=== PATIENT | female | born 1965 | race African-American/Black ===

== ENCOUNTER 2023-03-28 23:25 | Emergency (ER) | payer MEDICAID ==
[~2023-03-28] VITALS: Ht 157.5 cm; Wt 63.6 kg
[2023-03-29 00:05] LABS: BASOPHILS % (AUTO) 0.3 % (0-1); EOSINOPHILS # (AUTO) 0.7 X10'3 (0-0.9); EOSINOPHILS % (AUTO) 6.4 % (0-6); HEMATOCRIT 36.9 % (35.0-45.0); HEMOGLOBIN 12.3 g/dl (12.0-16.0); LYMPHOCYTES # (AUTO) 3.7 X10'3 (1.1-4.8); LYMPHOCYTES % (AUTO) 34.3 % (21-51); MEAN CORPUSCULAR HEMOGLOBIN 30.2 PG (27.0-31.0); MEAN CORPUSCULAR HGB CONC 33.2 g/dL (33.0-36.5); MEAN CORPUSCULAR VOLUME 90.8 FL (78-98); MEAN PLATELET VOLUME 8.5 FL (7.4-10.4); MONOCYTES # (AUTO) 0.7 X10'3 (0-0.9); MONOCYTES % (AUTO) 6.4 % (2-12); NEUTROPHILS # (AUTO) 5.7 X10'3 (1.8-7.7); NEUTROPHILS % (AUTO) 52.6 % (42-75); PLATELET COUNT 212 X10'3 (140-440); RED BLOOD COUNT 4.06 X10'6 (4.20-5.60); RED CELL DISTRIBUTION WIDTH 13.8 % (11.5-14.5); WHITE BLOOD COUNT 10.8 X10'3 (4.5-11.0)
[2023-03-29 00:22] LABS: ALANINE AMINOTRANSFERASE 23 U/L (12-78); ALBUMIN 3.2 G/DL (3.4-5.0); ALBUMIN/GLOBULIN RATIO 0.8 (1.1-1.5); ALKALINE PHOSPHATASE 99 IU/L (46-116); ANION GAP 6 (8-16); ASPARTATE AMINO TRANSFERASE 19 U/L (10-37); BILIRUBIN,TOTAL 0.3 MG/DL (0.1-1.0); BLOOD UREA NITROGEN 19 MG/DL (7-18); BUN/CREATININE RATIO 20.4 (10.0-20.0); CALCIUM 8.8 MG/DL (8.5-10.1); CHLORIDE 107 MMOL/L (99-107); CREATININE 0.93 MG/DL (0.40-0.90); GLUCOSE 219 MG/DL (70-104); POTASSIUM 4.1 MMOL/L (3.5-5.1); SODIUM 139 MMOL/L (135-145); TOTAL CARBON DIOXIDE 26.3 MMOL/L (24-32); TOTAL PROTEIN 7.1 G/DL (6.4-8.2); eGFR 75 ML/MIN
[2023-03-29 04:54] VITALS: BP 145/89
== END 2023-03-29 05:09 | disposition home or self-care (01) ==
LOC: ER 23:28
DX: R07.89 Other chest pain (principal); I69.954 Hemiplegia and hemiparesis following unspecified cerebrovascular disease affecting left non-dominant side; Z95.0 Presence of cardiac pacemaker; Z88.0 Allergy status to penicillin
CPT/HCPCS: 36415; 71045; 80053; 83880; 84484; 85025; 93005; 99285

== ENCOUNTER 2023-12-30 13:42 | Emergency (ER) | payer MEDICAID ==
[~2023-12-30] VITALS: Ht 157.5 cm; Wt 71.4 kg
[2023-12-30 13:44] VITALS: TEMP 97.9
[2023-12-30] MEDS: metoprolol tartrate 50mg tablet PO ONE ×2 (18:02→18:26)
[2023-12-30] MEDS: hydrALAZINE 25 MG tablet PO ONE (18:02)
[2023-12-30 18:28] LABS: BASOPHILS % (AUTO) 0.2 % (0-1); EOSINOPHILS # (AUTO) 0.3 X10'3 (0-0.9); EOSINOPHILS % (AUTO) 3.5 % (0-6); HEMATOCRIT 37.8 % (35.0-45.0); HEMOGLOBIN 12.4 g/dl (12.0-16.0); LYMPHOCYTES # (AUTO) 3.8 X10'3 (1.1-4.8); LYMPHOCYTES % (AUTO) 38.5 % (21-51); MEAN CORPUSCULAR HEMOGLOBIN 29.1 PG (27.0-31.0); MEAN CORPUSCULAR HGB CONC 32.9 g/dL (33.0-36.5); MEAN CORPUSCULAR VOLUME 88.4 FL (78-98); MEAN PLATELET VOLUME 8.9 FL (7.4-10.4); MONOCYTES # (AUTO) 0.7 X10'3 (0-0.9); MONOCYTES % (AUTO) 7.3 % (2-12); NEUTROPHILS % (AUTO) 50.5 % (42-75); PLATELET COUNT 246 X10'3 (140-440); RED BLOOD COUNT 4.27 X10'6 (4.20-5.60); RED CELL DISTRIBUTION WIDTH 14.6 % (11.5-14.5); WHITE BLOOD COUNT 9.9 X10'3 (4.5-11.0)
[2023-12-30 18:51] LABS: ALBUMIN 3.2 G/DL (3.4-5.0); ANION GAP 7 (8-16); BLOOD UREA NITROGEN 17 MG/DL (7-18); BUN/CREATININE RATIO 22.1 (10.0-20.0); CALCIUM 8.8 MG/DL (8.5-10.1); CHLORIDE 106 MMOL/L (99-107); CREATININE 0.77 MG/DL (0.40-0.90); GLUCOSE 119 MG/DL (70-104); PRO BRAIN NATRIURETIC PEPTIDE 281 PG/ML (0-125); SODIUM 142 MMOL/L (135-145); TOTAL CARBON DIOXIDE 28.6 MMOL/L (24-32); eCRCL 62 ML/MIN; eGFR > 90 ML/MIN
[2023-12-30] MEDS ORDERED: AMLO5TAB16 PO (19:10)
[2023-12-30 22:16] VITALS: BP 141/91; PULSE 83; RESP 20; O2SAT 96
== END 2023-12-31 00:12 | disposition home or self-care (01) ==
LOC: ER 13:42
DX: I10 Essential (primary) hypertension (principal); Z88.0 Allergy status to penicillin; Z79.899 Other long term (current) drug therapy
CPT/HCPCS: 36415; 80048; 83880; 84484; 85025; 93005; 99285

== ENCOUNTER 2024-06-11 20:59 | Inpatient (IN) | payer MEDICAID ==
[~2024-06-11] VITALS: Ht 157.5 cm; Wt 71.3 kg
[~2024-06-11 20:59] MED LIST: AMLO5TAB16 PO
[2024-06-11] MEDS: normal saline 1000ML IV soln IVB ONE (22:38)
[2024-06-11 22:49] LABS: BASOPHILS % (AUTO) 0.6 % (0-1); EOSINOPHILS # (AUTO) 0.1 X10'3 (0-0.9); EOSINOPHILS % (AUTO) 1.5 % (0-6); HEMATOCRIT 38.2 % (35.0-45.0); HEMOGLOBIN 12.4 g/dl (12.0-16.0); LYMPHOCYTES % (AUTO) 15.2 % (21-51); MEAN CORPUSCULAR HEMOGLOBIN 28.1 PG (27.0-31.0); MEAN CORPUSCULAR HGB CONC 32.5 g/dL (33.0-36.5); MEAN CORPUSCULAR VOLUME 86.2 FL (78-98); MEAN PLATELET VOLUME 8.8 FL (7.4-10.4); MONOCYTES % (AUTO) 15.4 % (2-12); NEUTROPHILS # (AUTO) 4.2 X10'3 (1.8-7.7); NEUTROPHILS % (AUTO) 67.3 % (42-75); PLATELET COUNT 196 X10'3 (140-440); RED BLOOD COUNT 4.43 X10'6 (4.20-5.60); RED CELL DISTRIBUTION WIDTH 15.1 % (11.5-14.5); WHITE BLOOD COUNT 6.3 X10'3 (4.5-11.0)
[2024-06-11 22:53] LABS: ALBUMIN 3.3 G/DL (3.4-5.0); ANION GAP 9 (8-16); BLOOD UREA NITROGEN 9 MG/DL (7-18); BUN/CREATININE RATIO 10.8 (10.0-20.0); CALCIUM 8.7 MG/DL (8.5-10.1); CHLORIDE 104 MMOL/L (99-107); CREATININE 0.83 MG/DL (0.40-0.90); GLUCOSE 123 MG/DL (70-104); POTASSIUM 3.7 MMOL/L (3.5-5.1); SODIUM 138 MMOL/L (135-145); TOTAL CARBON DIOXIDE 25.5 MMOL/L (24-32); eCRCL 58 ML/MIN; eGFR 85 ML/MIN
[2024-06-11 23:19] LABS: TOTAL CELLS COUNTED 100
[2024-06-11 23:20] LABS: PLATELET ESTIMATE NORMAL
[2024-06-12 01:15] LABS: BILIRUBIN,URINE NEGATIVE (Neg); CLARITY,URINE CLEAR (Clear); COLOR,URINE YELLOW (Yellow); GLUCOSE, URINE NEGATIVE (Neg); KETONES,URINE TRACE mg/dl (Neg); LEUKOCYTE ESTERASE ,URINE NEGATIVE (Neg); NITRITES, URINE NEGATIVE (Neg); OCCULT BLOOD,URINE SMALL (Neg); PH,URINE 6.5 (4.8-8.0); PROTEIN,URINE NEGATIVE (Neg); UROBILINOGEN,URINE 0.2 E.U/dL (0.2-1.0)
[2024-06-12] MEDS ORDERED: amLODIPine 5mg tablet PO ONE (01:20)
[2024-06-12 01:30] LABS: UA COLLECTION TYPE CLN CATCH MIDSTREAM
[2024-06-12 01:31] LABS: SQUAMOUS EPITHELIAL CELL,UR FEW /LPF (FEW)
[2024-06-12] MEDS: amLODIPine 2.5mg tablet PO ONE (01:31)
[2024-06-12 01:32] LABS: BACTERIA,URINE FEW /HPF (Neg); RBC,URINE 0-2 /HPF (0-2); WBC,URINE 0-4 /HPF (0-4)
[2024-06-12] MEDS: lisinopril 10 MG tablet PO ONE (01:32)
[2024-06-12] MEDS: metoprolol tartrate 50mg tablet PO ONE (01:32)
[2024-06-12] MEDS ORDERED: acetaminophen 325mg tablet PO PRN (04:00)
[2024-06-12] MEDS ORDERED: hydrALAZINE 20mg/ml inj. IV PRN (04:30)
[2024-06-12] MEDS ORDERED: CefTRIAXone/D5W-Rocephin 1gm 50 ML IV SCH (05:30)
[2024-06-12] MEDS ORDERED: azithromycin/NS 500mg/250ml 250 ML IV SCH (05:30)
[2024-06-12] MEDS: azithromycin/NS 500mg/250ml 250 ML IV SCH (05:34)
[2024-06-12 06:00] VITALS: BP 155/75; TEMP 97.8; O2SAT 96
[2024-06-12 06:15] VITALS: BP 171/95; PULSE 75; RESP 17; TEMP 98.7; O2SAT 98
[2024-06-12 06:57] LABS: APTT 27 SECONDS (22-32); D-DIMER 1.54 MG/L FEU (0-0.50); PROTHROMBIN TIME 10.8 SECONDS (9.0-12.0)
[2024-06-12 07:01] LABS: C-REACTIVE PROTEIN 1.99 MG/DL (0.0-0.5); CHOL/HDL RATIO 4.2 (0.00-4.99); CHOLESTEROL 181 MG/DL (0-200); HDL CHOLESTEROL 43 MG/DL (35-60); LACTATE DEHYDROGENASE 286 U/L (81-234); LDL CHOLESTEROL 114 MG/DL (50-100); TRIGLYCERIDES 74 MG/DL (20-135)
[2024-06-12 07:18] LABS: HEMOGLOBIN A1C 7.9 % (4.5-6.2)
[2024-06-12] MEDS: lisinopril 20mg tablet PO SCH (08:12)
[2024-06-12] MEDS: aspirin 81mg, enteric-coated 1 TAB TABLET.DR PO SCH (08:12)
[2024-06-12] MEDS: CefTRIAXone/D5W-Rocephin 1gm 50 ML IV SCH (08:13)
[2024-06-12] MEDS: heparin, porcine 5000 units/ml vial SQ SCH (08:15)
[2024-06-12] MEDS: amLODIPine 5mg tablet PO SCH (09:21)
[2024-06-12 11:00] VITALS: BP 138/90; PULSE 75; RESP 12; TEMP 98; O2SAT 96
[2024-06-12 11:03] VITALS: RESP 16; O2SAT 98
[2024-06-12] MEDS: atorvastatin 20mg tablet PO SCH (14:08)
[2024-06-12 18:20] VITALS: BP 143/84; PULSE 94; RESP 18; TEMP 98.4; O2SAT 98
[2024-06-12] MEDS: acetaminophen 325mg tablet PO PRN (21:17)
[2024-06-12 22:00] VITALS: BP 152/83; PULSE 81; RESP 14; TEMP 98.1; O2SAT 98
[2024-06-12] MEDS ORDERED: METF-436 PO ×2 (23:17)
[2024-06-12] MEDS ORDERED: METO50TA16 PO (23:35)
[2024-06-12] MEDS ORDERED: CELE-193 PO (23:37)
[2024-06-12] MEDS ORDERED: CYCL-394 PO (23:41)
[2024-06-12] MEDS ORDERED: ASPI81TA52 PO (23:41)
[2024-06-12] MEDS ORDERED: LISI40TA13 PO (23:42)
[2024-06-12] MEDS ORDERED: OMEP20CA16 PO (23:43)
[2024-06-12] MEDS ORDERED: OXYB5TAB21 PO (23:44)
[2024-06-12] MEDS ORDERED: TIZA2CAP7 PO (23:45)
[2024-06-13] VITALS (9 sets, daily range): BP systolic 118–152; BP diastolic 62–96; PULSE 82–95; RESP 16–18; TEMP 97.5–98.3; O2SAT 95–98
[2024-06-13 06:25] LABS: ANION GAP 12 (8-16); BLOOD UREA NITROGEN 11 MG/DL (7-18); BUN/CREATININE RATIO 12.9 (10.0-20.0); CALCIUM 8.7 MG/DL (8.5-10.1); CHLORIDE 103 MMOL/L (99-107); CREATININE 0.85 MG/DL (0.40-0.90); GLUCOSE 124 MG/DL (70-104); POTASSIUM 3.4 MMOL/L (3.5-5.1); SODIUM 138 MMOL/L (135-145); TOTAL CARBON DIOXIDE 23.4 MMOL/L (24-32); eCRCL 56 ML/MIN; eGFR 83 ML/MIN
[2024-06-13 06:28] LABS: BASOPHILS % (AUTO) 0.5 % (0-1); EOSINOPHILS # (AUTO) 0.1 X10'3 (0-0.9); EOSINOPHILS % (AUTO) 2.4 % (0-6); HEMATOCRIT 40.9 % (35.0-45.0); HEMOGLOBIN 13.5 g/dl (12.0-16.0); LYMPHOCYTES # (AUTO) 2.2 X10'3 (1.1-4.8); LYMPHOCYTES % (AUTO) 44.6 % (21-51); MEAN CORPUSCULAR HEMOGLOBIN 28.9 PG (27.0-31.0); MEAN CORPUSCULAR HGB CONC 33.1 g/dL (33.0-36.5); MEAN CORPUSCULAR VOLUME 87.5 FL (78-98); MEAN PLATELET VOLUME 9.1 FL (7.4-10.4); MONOCYTES # (AUTO) 0.8 X10'3 (0-0.9); MONOCYTES % (AUTO) 15.4 % (2-12); NEUTROPHILS # (AUTO) 1.8 X10'3 (1.8-7.7); NEUTROPHILS % (AUTO) 37.1 % (42-75); PLATELET COUNT 204 X10'3 (140-440); RED BLOOD COUNT 4.68 X10'6 (4.20-5.60); RED CELL DISTRIBUTION WIDTH 15.2 % (11.5-14.5); WHITE BLOOD COUNT 4.9 X10'3 (4.5-11.0)
[2024-06-13 07:03] LABS: PLATELET ESTIMATE NORMAL; TOTAL CELLS COUNTED 100
[2024-06-13] MEDS: potassium Cl 20 mEq SR tablet PO PRN (11:25)
[2024-06-13 12:35] LABS: D-DIMER 1.21 MG/L FEU (0-0.50)
[2024-06-13] MEDS: HYDROcodone/acetaminophen 5mg/325mg tablet PO SCH (12:55)
[2024-06-13] MEDS: guaiFENesin/DM 10ml UD oral syrup PO SCH (15:01)
[2024-06-13 16:15] LABS: APTT 29 SECONDS (22-32); PROTHROMBIN TIME 10.8 SECONDS (9.0-12.0)
[2024-06-14 02:00] VITALS: BP 121/85; PULSE 70; RESP 16; TEMP 98.6; O2SAT 98
[2024-06-14 06:00] VITALS: BP 156/93; PULSE 86; RESP 17; TEMP 97.9; O2SAT 97
[2024-06-14 07:05] LABS: D-DIMER 0.94 MG/L FEU (0-0.50)
[2024-06-14] MEDS ORDERED: tizanidine 4mg tablet PO PRN (07:15)
[2024-06-14 07:22] LABS: ALBUMIN 2.9 G/DL (3.4-5.0); ANION GAP 13 (8-16); BLOOD UREA NITROGEN 15 MG/DL (7-18); BUN/CREATININE RATIO 18.8 (10.0-20.0); C-REACTIVE PROTEIN 2.08 MG/DL (0.0-0.5); CALCIUM 8.5 MG/DL (8.5-10.1); CHLORIDE 104 MMOL/L (99-107); GLUCOSE 110 MG/DL (70-104); POTASSIUM 3.5 MMOL/L (3.5-5.1); SODIUM 140 MMOL/L (135-145); TOTAL CARBON DIOXIDE 23.3 MMOL/L (24-32); eCRCL 60 ML/MIN; eGFR 89 ML/MIN
[2024-06-14 08:00] VITALS: RESP 18; O2SAT 98
[2024-06-14] MEDS: oxybutynin 5mg tablet PO SCH (08:54)
[2024-06-14] MEDS: pantoprazole 40mg Tablet.DR PO SCH (08:59)
[2024-06-14 12:08] LABS: HEMATOCRIT 39.7 % (37.7-47.9); HEMOGLOBIN 13.4 G/DL (11.5-16.0); MEAN CORPUSCULAR HEMOGLOBIN 28.8 PG (27-31.2); MEAN CORPUSCULAR VOLUME 85.7 FL (81-97); RED BLOOD COUNT 4.63 X10'6 (3.60-4.90); WHITE BLOOD COUNT 4.7 X10'3 (4.5-11.0)
[2024-06-14 12:09] LABS: BASOPHILS % 0 % (0-2); EOSINOPHILS # (AUTO) 0.2 X10'3 (0-0.9); EOSINOPHILS % (AUTO) 4 % (0-6); LYMPHOCYTES # (AUTO) 2.3 X10'3 (1.1-4.8); LYMPHOCYTES % 49 % (24-44); MEAN CORPUSCULAR HGB CONC 33.7 % (32-36); MONOCYTES # (AUTO) 0.5 X10'3 (0-0.9); MONOCYTES % 10 % (0-12); NEUTROPHILS # (AUTO) 1.7 X10'3 (1.8-7.7); PLATELET COUNT 193 X10'3 (130-400); RED CELL DISTRIBUTION WIDTH 14.8 % (11-16); SEGMENTED NEUTROPHILS % 37 % (36-66)
[2024-06-14 18:00] VITALS: BP 151/83; PULSE 95; RESP 16; TEMP 97.3; O2SAT 96
[2024-06-14 20:00] VITALS: RESP 16; O2SAT 96
[2024-06-14 22:00] VITALS: BP 133/66; PULSE 92; RESP 18; TEMP 98.3; O2SAT 98
[2024-06-15 05:55] LABS: BASOPHILS % (AUTO) 0.3 % (0-1); EOSINOPHILS # (AUTO) 0.3 X10'3 (0-0.9); EOSINOPHILS % (AUTO) 5.2 % (0-6); HEMATOCRIT 39.3 % (35.0-45.0); HEMOGLOBIN 12.3 g/dl (12.0-16.0); LYMPHOCYTES # (AUTO) 3.3 X10'3 (1.1-4.8); LYMPHOCYTES % (AUTO) 55.4 % (21-51); MEAN CORPUSCULAR HEMOGLOBIN 28.1 PG (27.0-31.0); MEAN CORPUSCULAR HGB CONC 31.4 g/dL (33.0-36.5); MEAN CORPUSCULAR VOLUME 89.6 FL (78-98); MEAN PLATELET VOLUME 9.3 FL (7.4-10.4); MONOCYTES # (AUTO) 0.4 X10'3 (0-0.9); NEUTROPHILS # (AUTO) 1.9 X10'3 (1.8-7.7); NEUTROPHILS % (AUTO) 32.1 % (42-75); PLATELET COUNT 203 X10'3 (140-440); RED BLOOD COUNT 4.39 X10'6 (4.20-5.60); RED CELL DISTRIBUTION WIDTH 15.3 % (11.5-14.5); WHITE BLOOD COUNT 5.9 X10'3 (4.5-11.0)
[2024-06-15 06:06] LABS: ALBUMIN 2.7 G/DL (3.4-5.0); ANION GAP 10 (8-16); BLOOD UREA NITROGEN 18 MG/DL (7-18); CALCIUM 8.5 MG/DL (8.5-10.1); CHLORIDE 105 MMOL/L (99-107); GLUCOSE 92 MG/DL (70-104); POTASSIUM 3.5 MMOL/L (3.5-5.1); SODIUM 139 MMOL/L (135-145); eCRCL 53 ML/MIN; eGFR 78 ML/MIN
[2024-06-15 06:29] LABS: PLATELET ESTIMATE NORMAL; TOTAL CELLS COUNTED 100
[2024-06-15 08:00] VITALS: RESP 19; O2SAT 96
[2024-06-15 10:10] VITALS: RESP 17
[2024-06-15 10:13] VITALS: BP_SYST 117; PULSE 83
[2024-06-15] MEDS ORDERED: ATOR20TA66 PO ×2 (12:52→13:31)
[2024-06-15] MEDS ORDERED: METF-1203 PO (13:31)
[2024-06-15] MEDS: ondansetron/PF 4mg/2ml inj IV PRN (14:40)
== END 2024-06-15 20:10 | disposition home health service (06) | DRG 199 ==
LOC: ER 20:59 → UNDOADMIN 06-12 03:48 → ED HOLD 06-12 03:48 → PCU 3S 06-12 05:55
PROVIDERS: ADMIT Internal Medicine Critical Care Medicine; ATTEND Internal Medicine
DX: I16.0 Hypertensive urgency (principal); J12.82 Pneumonia due to coronavirus disease 2019; I49.5 Sick sinus syndrome; J15.8 Pneumonia due to other specified bacteria; I69.851 Hemiplegia and hemiparesis following other cerebrovascular disease affecting right dominant side; U07.1 COVID-19; E11.9 Type 2 diabetes mellitus without complications; M79.672 Pain in left foot; I10 Essential (primary) hypertension; R63.0 Anorexia; Z88.0 Allergy status to penicillin; Z79.899 Other long term (current) drug therapy; Z95.0 Presence of cardiac pacemaker
CPT/HCPCS: 36415; 71045; 80048; 80061; 81001; 83036; 83605; 83615; 84145; 85007; 85025; 85379; 85610; 85651; 85730; 86140; 87040; 87081; 87811; 92508; 92616; 93308; 93970; 97110; 97161; 97530; 99285; G0378; J0456; J0696; J1644; J2405; J7030

== ENCOUNTER 2024-09-28 09:42 | Inpatient (IN) | payer MEDICAID, SELFPAY ==
[~2024-09-28] VITALS: Ht 157.5 cm; Wt 74.5 kg
[~2024-09-28 09:42] MED LIST changes: +ASPI81TA52 PO; +ATOR20TA66 PO; +CELE-193 PO; +CYCL-394 PO; +LISI40TA13 PO; +METO50TA16 PO; +OMEP20CA16 PO; +OXYB5TAB21 PO; +TIZA2CAP7 PO
[2024-09-28 10:33] LABS: BASOPHILS % (AUTO) 0.4 % (0-1); EOSINOPHILS % (AUTO) 0.4 % (0-6); HEMATOCRIT 39.5 % (35.0-45.0); HEMOGLOBIN 12.9 g/dl (12.0-16.0); LYMPHOCYTES # (AUTO) 0.5 X10'3 (1.1-4.8); LYMPHOCYTES % (AUTO) 8.6 % (21-51); MEAN CORPUSCULAR HGB CONC 32.8 g/dL (33.0-36.5); MEAN CORPUSCULAR VOLUME 88.4 FL (78-98); MEAN PLATELET VOLUME 9.5 FL (7.4-10.4); MONOCYTES % (AUTO) 15.8 % (2-12); NEUTROPHILS # (AUTO) 4.7 X10'3 (1.8-7.7); NEUTROPHILS % (AUTO) 74.8 % (42-75); PLATELET COUNT 187 X10'3 (140-440); RED BLOOD COUNT 4.46 X10'6 (4.20-5.60); RED CELL DISTRIBUTION WIDTH 14.8 % (11.5-14.5); WHITE BLOOD COUNT 6.2 X10'3 (4.5-11.0)
[2024-09-28] MEDS: aspirin 81mg tab.chew PO ONE ×2 (10:39→12:15)
[2024-09-28] MEDS ORDERED: iohexol 350MG/ML 100ml bottle IV ONE (10:44)
[2024-09-28 10:47] LABS: APTT 26 SECONDS (22-32); PROTHROMBIN TIME 10.9 SECONDS (9.0-12.0)
[2024-09-28 10:51] LABS: ALBUMIN 3.3 G/DL (3.4-5.0); BLOOD UREA NITROGEN 14 MG/DL (7-18); BUN/CREATININE RATIO 14.6 (10.0-20.0); CREATININE 0.96 MG/DL (0.40-0.90); GLUCOSE 262 MG/DL (70-104); POTASSIUM 3.9 MMOL/L (3.5-5.1); SODIUM 142 MMOL/L (135-145); TOTAL CARBON DIOXIDE 24.8 MMOL/L (24-32); eCRCL 49 ML/MIN; eGFR 72 ML/MIN
[2024-09-28 10:55] LABS: PLATELET ESTIMATE NORMAL; TOTAL CELLS COUNTED 100
[2024-09-28 11:01] LABS: ANION GAP 14 (8-16); CHLORIDE 103 MMOL/L (99-107)
[2024-09-28] MEDS: niCARDipine-NS 40mg/200ml IVPB 200 ML IV SCH (12:11)
[2024-09-28] MEDS: insulin regular, human 10 units/0.1 ml syringe IV ONE (12:22)
[2024-09-28] MEDS ORDERED: hydrALAZINE 20mg/ml inj. IV PRN (12:25)
[2024-09-28] MEDS: PERFLUTREN PROTEIN-A MICROSPHR (Optison) 0.22 MG/ML 3ML VIAL IV ONE (12:25)
[2024-09-28] MEDS ORDERED: dextrose 50%-water 50ml dispensing syringe IV PRN ×2 (12:35)
[2024-09-28] MEDS ORDERED: acetaminophen 325mg tablet PO PRN (12:35)
[2024-09-28] MEDS ORDERED: docusate sod 100mg capsule PO PRN (12:35)
[2024-09-28] MEDS ORDERED: ondansetron/PF 4mg/2ml inj IV PRN (12:35)
[2024-09-28] MEDS ORDERED: morphine 2 MG/ML inj. syringe IV PRN ×2 (12:35)
[2024-09-28] MEDS ORDERED: magnesium sulf-water 4G/100mL 100 ML IV PRN (12:35)
[2024-09-28] MEDS ORDERED: magnesium hydroxide 30ml (MOM) UD suspension PO PRN (12:35)
[2024-09-28] MEDS ORDERED: glucagon, human recombinant 1mg kit SUBCUT PRN (12:35)
[2024-09-28] MEDS ORDERED: DEXTROSE 15 GM of carb/4 tabs (each vial/BOTTLE has 4 tablets) PO PRN ×2 (12:35)
[2024-09-28] MEDS ORDERED: magnesium sulf-water 2g/50mL 50 ML IV PRN (12:35)
[2024-09-28] MEDS ORDERED: mag hydrox/Alum hydrox/simeth 30ml oral suspension PO PRN (12:35)
[2024-09-28] MEDS ORDERED: magnesium Cl slow-release 64mg tablet PO PRN (12:35)
[2024-09-28] MEDS ORDERED: potassium Cl 20 mEq SR tablet PO PRN ×2 (12:35)
[2024-09-28 12:43] LABS: BILIRUBIN,URINE NEGATIVE (Neg); CLARITY,URINE CLEAR (Clear); COLOR,URINE YELLOW (Yellow); GLUCOSE, URINE 250 mg/dl (Neg); KETONES,URINE TRACE mg/dl (Neg); LEUKOCYTE ESTERASE ,URINE NEGATIVE (Neg); NITRITES, URINE NEGATIVE (Neg); OCCULT BLOOD,URINE SMALL (Neg); PROTEIN,URINE TRACE mg/dl (Neg)
[2024-09-28 12:46] LABS: UA COLLECTION TYPE STRAIGHT CATH
[2024-09-28 12:53] LABS: HYALINE CASTS 0-3 /LPF (NEGATIVE); SQUAMOUS EPITHELIAL CELL,UR MODERATE /LPF (FEW)
[2024-09-28 12:54] LABS: BACTERIA,URINE NONE SEEN /HPF (Neg); WBC,URINE 0-4 /HPF (0-4)
[2024-09-28 13:22] LABS: THYROID STIMULATING HORMONE 0.39 ulU/ml (0.34-4.50)
[2024-09-28 13:27] LABS: HEMOGLOBIN A1C 7.7 % (4.5-6.2)
[2024-09-28] MEDS: normal saline 1000ml 1,000 ML IV ONE ×2 (13:35)
[2024-09-28] MEDS: normal saline 1000ml 1,000 ML IV SCH (14:06)
[2024-09-28 15:30] LABS: URINE AMPHETAMINE SCREEN NEGATIVE (Neg); URINE BARBITUATE SCREEN NEGATIVE (Neg); URINE BENZODIAZEPINES SCREEN NEGATIVE (Neg); URINE CANNABINOID SCREEN NEGATIVE (Neg); URINE COCAINE SCREEN NEGATIVE (Neg); URINE METHADONE SCREEN NEGATIVE (Neg); URINE OPIATE SCREEN NEGATIVE (Neg); URINE PHENCYCLIDINE SCREEN NEGATIVE (Neg)
[2024-09-28] MEDS: aspirin 300mg supp.rect RC ONE (15:35)
[2024-09-28] MEDS ORDERED: pantoprazole 40 MG vial IV SCH (16:55)
[2024-09-28] MEDS ORDERED: INSULIN LISPRO 100 UNIT/ML INSULN.PEN MULTI-DOSE SQ SCH (17:00)
[2024-09-28 20:00] VITALS: BP 158/104; PULSE 116; RESP 18; TEMP 97.2; O2SAT 99
[2024-09-28] MEDS: K and/or MAG REPLACEMENT MC SCH (20:00)
[2024-09-28] MEDS: enoxaparin 40mg/0.4ml syringe SQ SCH (20:37)
[2024-09-28] MEDS: pantoprazole 40 MG vial IV SCH (20:49)
[2024-09-28] MEDS ORDERED: insulin glargine (Lantus) pen - multi-dose SQ SCH (21:00)
[2024-09-28] MEDS: labetalol 20mg/4ml (5mg/ml) syringe IV PRN (21:41)
[2024-09-28 22:00] VITALS: BP 183/113; PULSE 96; RESP 13; O2SAT 93
[2024-09-28 23:00] VITALS: BP 201/121; PULSE 100; RESP 16; O2SAT 94
[2024-09-29] VITALS (26 sets, daily range): BP systolic 126–232; BP diastolic 56–128; PULSE 68–113; RESP 12–24; TEMP 97.4–98.5; O2SAT 91–98
[2024-09-29 08:17] LABS: CHOL/HDL RATIO 2.6 (0.00-4.99); CHOLESTEROL 116 MG/DL (0-200); HDL CHOLESTEROL 44 MG/DL (35-60); LDL CHOLESTEROL 65 MG/DL (50-100); MAGNESIUM 1.6 MG/DL (1.5-2.4); POTASSIUM 3.5 MMOL/L (3.5-5.1); TRIGLYCERIDES 66 MG/DL (20-135)
[2024-09-29 09:01] LABS: ALANINE AMINOTRANSFERASE 18 U/L (12-78); ALBUMIN 2.9 G/DL (3.4-5.0); ALBUMIN/GLOBULIN RATIO 0.6 (1.1-1.5); ALKALINE PHOSPHATASE 86 IU/L (46-116); ANION GAP 15 (8-16); ASPARTATE AMINO TRANSFERASE 25 U/L (10-37); BILIRUBIN,TOTAL 0.4 MG/DL (0.1-1.0); BLOOD UREA NITROGEN 10 MG/DL (7-18); BUN/CREATININE RATIO 11.1 (10.0-20.0); CALCIUM 8.3 MG/DL (8.5-10.1); CHLORIDE 102 MMOL/L (99-107); GLUCOSE 181 MG/DL (70-104); SODIUM 139 MMOL/L (135-145); TOTAL CARBON DIOXIDE 22.1 MMOL/L (24-32); TOTAL PROTEIN 7.7 G/DL (6.4-8.2); eCRCL 53 ML/MIN; eGFR 77 ML/MIN
[2024-09-29 11:04] LABS: BASOPHILS % (AUTO) 0.5 % (0-1); EOSINOPHILS % (AUTO) 0.1 % (0-6); MEAN CORPUSCULAR HEMOGLOBIN 28.7 PG (27.0-31.0); MONOCYTES # (AUTO) 0.8 X10'3 (0-0.9); NEUTROPHILS % (AUTO) 50.6 % (42-75)
[2024-09-29 11:06] LABS: HEMATOCRIT 38.8 % (35.0-45.0); HEMOGLOBIN 12.7 g/dl (12.0-16.0); LYMPHOCYTES # (AUTO) 1.2 X10'3 (1.1-4.8); MEAN CORPUSCULAR HGB CONC 32.8 g/dL (33.0-36.5); MEAN CORPUSCULAR VOLUME 87.5 FL (78-98); MONOCYTES % (AUTO) 19.8 % (2-12); NEUTROPHILS # (AUTO) 2.1 X10'3 (1.8-7.7); PLATELET COUNT 166 X10'3 (140-440); RED BLOOD COUNT 4.43 X10'6 (4.20-5.60); RED CELL DISTRIBUTION WIDTH 14.8 % (11.5-14.5); WHITE BLOOD COUNT 4.1 X10'3 (4.5-11.0)
[2024-09-29 11:58] LABS: LARGE PLATELETS FEW; PLATELET ESTIMATE NORMAL; TOTAL CELLS COUNTED 100
[2024-09-29] MEDS: levetiracetam-NACL1000mg/100ml 100 ML IV ONE (13:22)
[2024-09-29] MEDS: clopidogrel 75mg tablet PO SCH (16:16)
[2024-09-30] VITALS (11 sets, daily range): BP systolic 143–190; BP diastolic 78–111; PULSE 79–101; RESP 12–18; TEMP 97.3–98; O2SAT 93–100
[2024-09-30 05:04] LABS: BASOPHILS % (AUTO) 0.2 % (0-1); EOSINOPHILS % (AUTO) 0.1 % (0-6); HEMOGLOBIN 12.6 g/dl (12.0-16.0); LYMPHOCYTES # (AUTO) 2.2 X10'3 (1.1-4.8); LYMPHOCYTES % (AUTO) 39.6 % (21-51); MEAN CORPUSCULAR HEMOGLOBIN 28.8 PG (27.0-31.0); MEAN CORPUSCULAR HGB CONC 33.1 g/dL (33.0-36.5); MEAN CORPUSCULAR VOLUME 87.3 FL (78-98); MEAN PLATELET VOLUME 9.3 FL (7.4-10.4); MONOCYTES # (AUTO) 0.5 X10'3 (0-0.9); MONOCYTES % (AUTO) 9.7 % (2-12); NEUTROPHILS # (AUTO) 2.8 X10'3 (1.8-7.7); NEUTROPHILS % (AUTO) 50.4 % (42-75); PLATELET COUNT 148 X10'3 (140-440); RED BLOOD COUNT 4.35 X10'6 (4.20-5.60); RED CELL DISTRIBUTION WIDTH 14.6 % (11.5-14.5); WHITE BLOOD COUNT 5.5 X10'3 (4.5-11.0)
[2024-09-30 05:20] LABS: ALANINE AMINOTRANSFERASE 18 U/L (12-78); ALBUMIN 2.7 G/DL (3.4-5.0); ALBUMIN/GLOBULIN RATIO 0.6 (1.1-1.5); ALKALINE PHOSPHATASE 72 IU/L (46-116); ANION GAP 11 (8-16); ASPARTATE AMINO TRANSFERASE 22 U/L (10-37); BILIRUBIN,TOTAL 0.4 MG/DL (0.1-1.0); BLOOD UREA NITROGEN 9 MG/DL (7-18); BUN/CREATININE RATIO 11.7 (10.0-20.0); CALCIUM 8.3 MG/DL (8.5-10.1); CHLORIDE 106 MMOL/L (99-107); CREATININE 0.77 MG/DL (0.40-0.90); GLUCOSE 138 MG/DL (70-104); MAGNESIUM 1.7 MG/DL (1.5-2.4); POTASSIUM 3.1 MMOL/L (3.5-5.1); SODIUM 140 MMOL/L (135-145); TOTAL CARBON DIOXIDE 22.6 MMOL/L (24-32); eCRCL 61 ML/MIN; eGFR > 90 ML/MIN
[2024-09-30] MEDS: aspirin 81mg, enteric-coated 1 TAB TABLET.DR PO SCH (08:00)
[2024-09-30] MEDS: potassium Cl 40MEQ/1/2NS 520ml 520 ML IV PRN (08:34)
[2024-09-30] MEDS: metFORMIN 500mg tablet PO SCH (20:29)
[2024-10-01 02:00] VITALS: BP 145/82; PULSE 81; RESP 17; TEMP 97.2; O2SAT 96
[2024-10-01 08:00] VITALS: RESP 12; O2SAT 95
[2024-10-01 08:20] LABS: BASOPHILS % (AUTO) 0.4 % (0-1); EOSINOPHILS # (AUTO) 0.1 X10'3 (0-0.9); EOSINOPHILS % (AUTO) 1.9 % (0-6); HEMATOCRIT 38.7 % (35.0-45.0); HEMOGLOBIN 12.6 g/dl (12.0-16.0); LYMPHOCYTES % (AUTO) 51.2 % (21-51); MEAN CORPUSCULAR HEMOGLOBIN 29.1 PG (27.0-31.0); MEAN CORPUSCULAR HGB CONC 32.5 g/dL (33.0-36.5); MEAN CORPUSCULAR VOLUME 89.3 FL (78-98); MEAN PLATELET VOLUME 9.4 FL (7.4-10.4); MONOCYTES # (AUTO) 0.4 X10'3 (0-0.9); MONOCYTES % (AUTO) 10.9 % (2-12); NEUTROPHILS # (AUTO) 1.4 X10'3 (1.8-7.7); NEUTROPHILS % (AUTO) 35.6 % (42-75); PLATELET COUNT 145 X10'3 (140-440); RED BLOOD COUNT 4.33 X10'6 (4.20-5.60); RED CELL DISTRIBUTION WIDTH 15.1 % (11.5-14.5); WHITE BLOOD COUNT 3.8 X10'3 (4.5-11.0)
[2024-10-01 08:44] LABS: ALANINE AMINOTRANSFERASE 16 U/L (12-78); ALBUMIN 2.7 G/DL (3.4-5.0); ALBUMIN/GLOBULIN RATIO 0.6 (1.1-1.5); ALKALINE PHOSPHATASE 70 IU/L (46-116); ANION GAP 10 (8-16); ASPARTATE AMINO TRANSFERASE 22 U/L (10-37); BILIRUBIN,TOTAL 0.5 MG/DL (0.1-1.0); BLOOD UREA NITROGEN 7 MG/DL (7-18); BUN/CREATININE RATIO 8.9 (10.0-20.0); CALCIUM 8.1 MG/DL (8.5-10.1); CHLORIDE 109 MMOL/L (99-107); CREATININE 0.79 MG/DL (0.40-0.90); GLUCOSE 84 MG/DL (70-104); MAGNESIUM 1.6 MG/DL (1.5-2.4); POTASSIUM 3.9 MMOL/L (3.5-5.1); SODIUM 143 MMOL/L (135-145); TOTAL CARBON DIOXIDE 23.6 MMOL/L (24-32); TOTAL PROTEIN 7.1 G/DL (6.4-8.2); eCRCL 60 ML/MIN; eGFR 90 ML/MIN
[2024-10-01 08:50] LABS: TOTAL CELLS COUNTED 100
[2024-10-01 08:51] LABS: BURR CELLS FEW; PLATELET ESTIMATE NORMAL; TEAR DROP CELLS FEW
[2024-10-01] MEDS ORDERED: AMLO2.5T5 PO (10:13)
[2024-10-01] MEDS ORDERED: METF-1203 PO (10:13)
[2024-10-01] MEDS ORDERED: CLOP75TA34 PO (10:25)
[2024-10-01] MEDS ORDERED: ASPI81TA52 PO (10:25)
== END 2024-10-01 13:55 | disposition home health service (06) | DRG 47 ==
LOC: ER 09:42 → ED HOLD 12:35 → EDBEDREQ 13:58 → PCU 3S 19:52
PROVIDERS: ADMIT Internal Medicine; ATTEND Internal Medicine
PROC: B3251ZZ Computerized Tomography (CT Scan) of Bilateral Common Carotid Arteries using Low Osmolar Contrast (ICD-10-PCS; 2024-09-28)
PROC: B32G1ZZ Computerized Tomography (CT Scan) of Bilateral Vertebral Arteries using Low Osmolar Contrast (ICD-10-PCS; 2024-09-28)
PROC: B32R1ZZ Computerized Tomography (CT Scan) of Intracranial Arteries using Low Osmolar Contrast (ICD-10-PCS; 2024-09-28)
PROC: B3281ZZ Computerized Tomography (CT Scan) of Bilateral Internal Carotid Arteries using Low Osmolar Contrast (ICD-10-PCS; 2024-09-28)
PROC: 4A00X4Z Measurement of Central Nervous Electrical Activity, External Approach (ICD-10-PCS; principal; 2024-09-29)
DX: G45.9 Transient cerebral ischemic attack, unspecified (principal); G93.41 Metabolic encephalopathy; I49.5 Sick sinus syndrome; R56.9 Unspecified convulsions; I69.351 Hemiplegia and hemiparesis following cerebral infarction affecting right dominant side; E11.65 Type 2 diabetes mellitus with hyperglycemia; I10 Essential (primary) hypertension; Z88.0 Allergy status to penicillin
CPT/HCPCS: 36415; 70450; 70496; 70498; 70551; 71045; 80048; 80053; 80061; 80305; 81001; 82948; 83036; 83735; 84443; 84484; 85007; 85025; 85610; 85730; 87081; 92508; 92616; 93005; 93306; 95816; 97161; 97530; 97535; 99291; A6258; C1758; G0378; J1650; J1815; J1953; J2470; J3480; J3490; J7030; Q9967